=== PATIENT | male | born 1970 | race African-American/Black ===

== ENCOUNTER 2018-06-18 09:16 | Emergency (ER) | payer MEDICAID, OTHER ==
[2018-06-18] MEDS ORDERED: CYCLOBENZAPRINE 10 MG TAB PO ONE (09:28)
[2018-06-18] MEDS ORDERED: LIDOCAINE 4%/MENTHOL 1% PATCH TD ONE (09:28)
--- NOTE | 2018-06-18 09:28 | EDPHY ---
H & P Stated Complaint: r neck pain x 2 weeks Source: Patient Exam Limitations: No limitations - Personal History Current Tetanus/Diphtheria Vaccine: Yes - Medical/Surgical History Hx Asthma: No Hx Chronic Respiratory Disease: No Hx Diabetes: No Hx Cardiac Disease: No Hx Renal Disease: No Hx Cirrhosis: No Hx Alcoholism: No Hx HIV/AIDS: No Hx Splenectomy or Spleen Trauma: No Other PMH: denies - Social History Smoking Status: Never smoked Time Seen by Provider: 06/18/18 09:25 HPI/ROS: HPI: This is a 47-year-old male who presents with Chief Complaint: Right-sided neck pain x2 weeks Location: Right-sided neck Quality: Pain and decreased range of motion Duration: 2 weeks Signs and Symptoms: No bleeding, + radiation, no numbness, no weakness, no tingling, no incontinence, + decreased range of motion, no swelling, + pain, no fever Timing: Worsening Severity: Moderate Context: Patient is right-hand dominant, presents with 2 week history of gradually worsening pain on the right side of his neck that is increased with right lateral flexion and extension. Patient denies any trauma or injury. He reports that he has radiculopathy found the back of his neck down into all 5 fingers. He reports that the pain is constant, moderate in intensity. He has tried [id number] pain medications and massage with no relief. No recent chiropractic manipulation. Patient also reports that the pain at the base of his neck is causing headaches that occur daily. Headaches are not the worst of his life and are not thunderclap. Modifying Factors: [id number] pain medication Comment: ROS: A comprehensive 10 system review of systems is otherwise negative aside from elements mentioned in the history of present illness. MEDICAL/SURGICAL/SOCIAL HISTORY: Medical history: Generally healthy. Does not take any regular medications. Surgical history: Denies Social history: Never smoked, employed CONSTITUTIONAL: Muscular, adult black male, awake and alert, no obvious distress HEENT: Atraumatic and normocephalic. NECK: supple, no midline tenderness, reproducible tenderness over the right cervical paraspinous muscles with associated spasm; good range of motion but elicits pain. flexion 45 degrees, extension 45 degrees, right and left lateral flexion 45 degrees. No meningismus. Cardiovascular: Normal S1/S2, regular rate, regular rhythm, without murmur rub or gallop. PULMONARY/CHEST: Symmetrical and nontender. Clear to auscultation bilaterally. Good air movement. No accessory muscle usage. ABDOMEN: Soft, nondistended, nontender EXTREMITIES: 2/2 pulses, strength 5/5, no deformities, no clubbing, no cyanosis or edema. NEUROLOGICAL: no focal neuro deficits. GCS 15. Light touch sensation intact. SKIN: Warm and dry, no erythema. Tattoos present. no rash. Good capillary refill. (Neelam Cano) Constitutional: Initial Vital Signs Temperature (C) 37 C 06/18/18 09:18 Heart Rate 78 06/18/18 09:18 Respiratory Rate 18 06/18/18 09:18 Blood Pressure 159/97 H 06/18/18 09:18 O2 Sat (%) 96 06/18/18 09:18 O2 Delivery Mode Room Air Allergies/Adverse Reactions: No Known Allergies Allergy (Unverified 06/18/18 09:18) Home Medications: Medication Instructions Recorded Cyclobenzaprine [Flexeril 10 MG 10 mg PO TID PRN #15 tab 06/18/18 (*)] methylPREDNISolone [Medrol Dose 1 each PO AD #0 ea 06/18/18 Clark] oxyCODONE/APAP 5/325 [Percocet 1 - 2 tab PO Q4H PRN #10 tab 06/18/18 5/325 (*)] Medical Decision Making - Diagnostics Imaging Results: Imaging Impressions Cervical Spine MRI 06/18/18 09:28 Impression: 1. Multilevel mild to moderate degenerative disk disease with dorsal disk/ osteophyte complexes, worst at C3-C4, C4-C5, and C6-C7, bilateral uncovertebral osteophytes, and mild to moderate bilateral facet arthropathy resulting in mild central canal stenosis with slight cord compression at C3-C4, C4-C5, C5-C6, and C6-C7, worst at C3-C4 and C6-C7, and variable bilateral neural foraminal stenosis, severe on the right at C3-C4, moderate to severe bilaterally at C5-C6 , as described above. 2. C3-C4: Severe right neural foraminal stenosis secondary to moderate degenerative disk disease with dorsal disk/osteophyte complex, right uncovertebral osteophytes and bilateral facet arthropathy likely results in the patient's right upper extremity symptomatology. 3. No cord edema or myelomalacia. 4. Please see above findings at specific disk levels. Findings and recommendations discussed with Emergency Department physician web assistant, Neelam Cano, at 1052 hours, 06/18/2018. Final report concurs with initial preliminary interpretation. ED Course/Re-evaluation: Vital signs reviewed and stable upon arrival. MRI cervical spine ordered along with Lidoderm patch and p.o. Flexeril 10 mg. 1040: Called by radiologist, Dr. Castaneda, who advises that C3-C4 has severe neural foraminal degenerative changes as well as mild cord compression but no cord edema. He has scattered osteophyte complexes C3-C7 and moderate degenerative changes throughout 1050: Reassessed patient who reports adequate relief of pain. Will placed on Medrol Dosepak, Flexeril, Percocet with Neurosurgery follow-up No signs of neurovascular compromise/tenting of skin/compartment syndrome/ extremities and joints examined above and below area of concern and are neurovascularly intact/diskitis/epidural hematoma. This patient was seen under the supervision of my secondary supervising physician. I evaluated care for this patient independently. Discussed this patient with Dr. Briceno. (Neelam Cano) Differential Diagnosis: Differential diagnosis includes but is not limited to cervical degenerative disc disease, cervical disc herniation, cervical radiculopathy, cervical strain. (Neelam Cano) - Data Points Medications Given: Discontinued Medications Cyclobenzaprine HCl (Flexeril) 10 mg PO EDNOW ONE Stop: 06/18/18 09:29 Last Admin: 06/18/18 10:25 Dose: 10 mg Miscellaneous Medication (Icy Hot Lidocaine/Menthol 4%/1% Patch) 1 patch TD EDNOW ONE Stop: 06/18/18 09:29 Last Admin: 06/18/18 10:26 Dose: 1 patch Departure - Departure Disposition: Home, Routine, Self-Care Clinical Impression: Neural foraminal stenosis of cervical spine, Disc disease, degenerative, cervical, Degeneration of intervertebral disc of cervical region with osteophyte of cervical vertebra Condition: Good Instructions: Cervical Radiculopathy (ED), Degenerative Disc Disease (ED) Additional Instructions: Take Tylenol 650 mg every 4 hours and/or Ibuprofen 600 mg every 8 hours with food as needed for pain. Use Percocet every 6 hours as needed for severe/break through pain. Do not use Tylenol and Percocet concomitantly. Use Flexeril every 8 hr as needed for muscle spasms. Take Medrol Dosepak as directed until complete. Follow up with Neurosurgery in 7-10 days at which time they will evaluate and recommend with you if conservative management versus epidural steroid injection is indicated. Referrals: Wilton Escobedo MD [Medical Doctor] - As per Instructions Prescriptions: Cyclobenzaprine [Flexeril 10 MG (*)] 10 mg PO TID PRN #15 tab PRN Reason: Spasms methylPREDNISolone [Medrol Dose Clark] 1 each PO AD #0 ea oxyCODONE/APAP 5/325 [Percocet 5/325 (*)] 1 - 2 tab PO Q4H PRN #10 tab PRN Reason: Pain, Severe
[2018-06-18 10:52] VITALS: BP 152/95
[2018-06-18] MEDS ORDERED: PATCH REMOVAL 1 EA PATCH TD SCH (21:00)
== END 2018-06-18 10:51 | disposition home or self-care (01) ==
DX: M48.02 Spinal stenosis, cervical region (principal); M53.82 Other specified dorsopathies, cervical region

== ENCOUNTER 2018-06-25 09:58 | Emergency (ER) | payer OTHER ==
--- NOTE | 2018-06-25 10:17 | EDPHY ---
H & P Stated Complaint: bleeding on scalp post shaving head Time Seen by Provider: 06/25/18 10:13 HPI/ROS: HPI: This is a 47-year-old male who presents with Chief Complaint: bleeding on scalp post shaving head Location: Right temporal scalp Quality: Bleeding Duration: 15 min prior to arrival Signs and Symptoms: + bleeding, no radiation, no numbness, no weakness, no tingling, no incontinence, no decreased range of motion, no swelling, no pain, no fever Timing: Acute, resolved Severity: Mild Context: Patient reports that he was using a straight razor to shave his scalp this morning when he accidentally cut his right temporal scalp. Reports that he immediately started to bleed and the blood ran into his eyes. He rinsed it with hot water, apply direct pressure and then port hydrogen peroxide on the area. He reports that after a few minutes the bleeding stopped on its own. Denies dizziness, nausea, loss of consciousness. Reports tetanus is current. Modifying Factors: See above Comment: ROS: A comprehensive 10 system review of systems is otherwise negative aside from elements mentioned in the history of present illness. MEDICAL/SURGICAL/SOCIAL HISTORY: Medical history: Generally healthy. Does not take any regular medications. Surgical history: Denies Social history: Employed. Never smoked. CONSTITUTIONAL: Polite and cooperative, physically fit middle-aged black male, awake and alert, no obvious distress HEENT: normocephalic. 1/8 cm superficial nonbleeding skin avulsion on the right temporal scalp. NECK: supple EXTREMITIES: 2/2 pulses, strength 5/5, good light touch sensation. no deformities, no clubbing, no cyanosis or edema. NEUROLOGICAL: no focal neuro deficits. GCS 15. Light touch sensation intact. SKIN: Warm and dry, no erythema. no rash. Good capillary refill. Source: Patient Exam Limitations: No limitations - Personal History Current Tetanus Diphtheria and Acellular Pertussis (TDAP): Yes - Medical/Surgical History Hx Asthma: No Hx Chronic Respiratory Disease: No Hx Diabetes: No Hx Cardiac Disease: No Hx Renal Disease: No Hx Cirrhosis: No Hx Alcoholism: No Hx HIV/AIDS: No Hx Splenectomy or Spleen Trauma: No Other PMH: denies - Social History Smoking Status: Never smoked Constitutional: Initial Vital Signs Temperature (C) 37.1 C 06/25/18 10:01 Heart Rate 90 06/25/18 10:01 Respiratory Rate 18 06/25/18 10:01 O2 Sat (%) 95 06/25/18 10:01 O2 Delivery Mode Room Air Allergies/Adverse Reactions: No Known Allergies Allergy (Verified 06/25/18 09:59) Home Medications: Medication Instructions Recorded NK [No Known Home Meds] 06/25/18 Medical Decision Making ED Course/Re-evaluation: Vital signs reviewed and stable upon arrival. Patient has no active bleeding. No further intervention is required. Tetanus is current. Given verbal and written wound care instructions. This patient was seen under the supervision of my secondary supervising physician. I evaluated care for this patient independently. Discussed this patient with Dr. Vera. Differential Diagnosis: Differential diagnosis includes but is not limited to skin avulsion, laceration , vascular injury. Departure - Departure Disposition: Home, Routine, Self-Care Clinical Impression: Skin avulsion Condition: Good Instructions: Skin Avulsion (ED) Additional Instructions: Keep the area dry for 24-48 hours. After 48 hours, you may wash the site daily with mild soap and water; then pat dry. Apply topical antibiotic ointment daily until fully healed. Take Tylenol 650 mg every 4 hours and/or Ibuprofen 600 mg every 8 hours with food as needed for pain. Return to the ER immediately if you experience redness, red streaks, have fevers /chills, flu like symptoms, limited range of motion, or any other symptoms that concern you. Referrals: [facility],. [Clinic] - As per Instructions
== END 2018-06-25 10:23 | disposition home or self-care (01) ==
DX: S08.0XXA Avulsion of scalp, initial encounter (principal); W26.8XXA Contact with other sharp object(s), not elsewhere classified, initial encounter; Y93.E8 Activity, other personal hygiene

== ENCOUNTER 2018-08-11 14:09 | Emergency (ER) | payer OTHER ==
[2018-08-11 14:15] VITALS: BP 137/88
[2018-08-11] MEDS ORDERED: KETOROLAC 30 MG/1 ML SDV IM ONE (14:40)
--- NOTE | 2018-08-11 14:41 | EDPHY ---
H & P Time Seen by Provider: 08/11/18 14:17 HPI/ROS: HPI Chronic right-sided neck pain. Seen here in the past for the same. 47-year-old male by private vehicle. This patient presents to the emergency department complaining of ongoing right-sided posterior lateral neck pain. He was seen on June 18 of this year by physician environmental engineering assistant Rachael under the supervision of Dr. Manolo Briceno. He had an MRI of his cervical spine at that time. Osteophytic changes, degenerative changes and spinal canal stenosis was noted. Please see report for further details. He was discharged on a Medrol Dosepak as well as pain medications and muscle relaxers. He was instructed to follow up with Dr. Rush Gonzalez of the neuro spine service for re-evaluation and further management. He never did this. He did not have any significant neurologic findings at that visit. He comes back to the emergency department today stating that he has ongoing right posterior lateral neck pain, identical to the pain which has been plaguing him for some time now. He is asking for pain medication. He states that he was taking Flexeril but was not having significant relief from this medication. He states that he did not follow up with neuro spine secondary to being too busy working 2 jobs. He denies any neurologic complaints. He states that his pain is worse with yawning, sneezing , flexion extension and rotation of his neck. ROS: Constitutional: No fever, no chills. No weakness. Eyes: No discharge. No changes in vision. ENT: No sore throat. No nasal congestion or rhinorrhea. Respiratory: No cough. No shortness of breath. Cardiac: No chest pain, no palpitations. Gastrointestinal: No abdominal pain, no vomiting, no diarrhea. Genitourinary: No hematuria. No dysuria or increased frequency with urination. Musculoskeletal: No back pain. As above. No myalgias or arthralgias. Skin: No rashes. Neurological: No headache. No focal weakness or altered sensation. Past medical history: As above. Social history: He is here by himself. Nonsmoker. No alcohol. Physical Exam: General Appearance: Alert, no distress. Large man. This patient is responding to questions appropriately and in full sentences. This patient appears well-hydrated and well-nourished. Eyes: Pupils equal and round no pallor or injection. No lid edema, erythema or injection. Neurological: Motor sensory function is grossly intact in all myotomes in dermatomes of the bilateral upper and bilateral lower extremities. Cranial nerves are normal. Gait is normal. Skin: Warm and dry, no rashes. Respiratory: Lungs are clear on auscultation bilaterally. Good air movement. No tachypnea. Musculoskeletal: Neck is supple. No midline cervical, upper thoracic tenderness on palpation. He has tenderness on palpation at the medial base of his right trapezius muscle. There is some spasming to this area. Otherwise the soft tissues of his neck are nontender on palpation and without masses. He has no suboccipital tenderness on palpation. No voice changes. No stridor on auscultation of his neck. Extremities are symmetrical. All joints range without pain or impingement. Psychiatric: No agitation. No depression. Database: EKG: Imaging: Procedures: Emergency department course: Triage vital signs reviewed and are unremarkable. The patient has no contraindications to NSAIDs. No history of peptic ulcer disease or renal problems. He will be given a 1 time intramuscular dose of Toradol. I explained that I would write him limited prescriptions for oral morphine as well as Flexeril. He had good relief with his pain from the intramuscular Toradol. He presents without neurologic symptoms. I do not feel that steroids are indicated at this time. He tells me also that he just finished a course of oral prednisone. I discussed the importance of follow-up with the neuro spine service. I also discussed follow-up with [facility] for discussion of nonsurgical options regarding his neck pain. I stressed the importance of this follow-up and he stated that he would follow up shortly after the holidays. He feels comfortable going home and I feel he is safe for discharge. Return to emergency department precautions were reviewed thoroughly with him. All of his questions were answered. He was discharged from the emergency department in good condition. Differential Diagnosis: The differential diagnosis on this patient includes but is not limited to chronic neck pain, history of cervical degenerative changes. Acute cervical radiculopathy, epidural compression syndrome, carotid artery dissection, vertebral artery dissection, meningitis, acute traumatic spinal injury unlikely. This represents a partial list of diagnoses considered. These considerations are based on history, physical exam, past history, reassessment and diagnostic testing. Smoking Status: Never smoked Constitutional: Initial Vital Signs Temperature (C) 36.4 C 08/11/18 14:13 Heart Rate 78 08/11/18 14:13 Respiratory Rate 16 08/11/18 14:13 Blood Pressure 137/88 H 08/11/18 14:13 O2 Sat (%) 97 08/11/18 14:13 O2 Delivery Mode Room Air Allergies/Adverse Reactions: No Known Allergies Allergy (Verified 06/25/18 09:59) Home Medications: Medication Instructions Recorded Cyclobenzaprine [Flexeril 10 MG 10 mg PO TID #9 tab 08/11/18 (*)] Flexeril 10 MG (*) 08/11/18 Prednisone 08/11/18 morphINE IR [morphINE IR 15 mg (*)] 15 mg PO Q4-6PRN PRN #10 tab 08/11/18 Medical Decision Making - Data Points Medications Given: Discontinued Medications Ketorolac Tromethamine (Toradol) 60 mg IM EDNOW ONE Stop: 08/11/18 14:41 Last Admin: 08/11/18 14:46 Dose: 60 mg Departure - Departure Disposition: Home, Routine, Self-Care Clinical Impression: Chronic neck pain Condition: Good Instructions: Neck Pain (ED) Additional Instructions: Read and follow provided instructions. Follow-up with Dr. Wilton Escobedo or 1 of his partners with the neuro spine service as discussed. Call their office on Monday morning for appointment time. He should be seen within the next week. I have also given you referral information to [facility], these are doctors that take care of neck and back pain with nonsurgical options. Take medication as prescribed for pain and muscle relaxation. Uses medications at night. Do not drive while on these medications. Return to the emergency department for worsening pain, any loss of sensation, weakness or pain in your arms or other serious concerns. Referrals: [facility] [Outside] - As per Instructions Wilton Escobedo MD [Medical Doctor] - As per Instructions Prescriptions: Cyclobenzaprine [Flexeril 10 MG (*)] 10 mg PO TID #9 tab morphINE IR [morphINE IR 15 mg (*)] 15 mg PO Q4-6PRN PRN #10 tab PRN Reason: Pain, Moderate
== END 2018-08-11 14:52 | disposition home or self-care (01) ==
DX: M54.2 Cervicalgia (principal); G89.29 Other chronic pain
CPT/HCPCS: J1885

== ENCOUNTER 2018-08-15 18:19 | Emergency (ER) | payer OTHER ==
--- NOTE | 2018-08-15 18:36 | EDPHY ---
H & P Stated Complaint: c/o itching rash on neck x 1-2 hrs, no known allergies, no other sx Time Seen by Provider: 08/15/18 18:35 HPI/ROS: CHIEF COMPLAINT: Rash on neck HISTORY OF PRESENT ILLNESS: The patient presents the ED with complaints of a rash on his neck which has been present for the past 1-2 hours. The patient was seen in the emergency department several days ago with neck pain any similar distribution. The patient has no prior history of zoster. He denies any acute neurologic complaints. Patient was given a prescription for Flexeril and morphine during his prior ED visit. REVIEW OF SYSTEMS: A comprehensive 10 point review of systems is otherwise negative aside from elements mentioned in the history of present illness. Source: Patient - Medical/Surgical History Hx Asthma: No Hx Chronic Respiratory Disease: No Hx Diabetes: No Hx Cardiac Disease: No Hx Renal Disease: No Hx Cirrhosis: No Hx Alcoholism: No Hx HIV/AIDS: No Hx Splenectomy or Spleen Trauma: No Other PMH: L biceps tendon repair - Social History Smoking Status: Never smoked - Physical Exam Exam: General Appearance: Alert, no distress Eyes: Pupils equal and round no pallor or injection ENT, Mouth: Mucous membranes moist Respiratory: There are no retractions, lungs are clear to auscultation Cardiovascular: Regular rate and rhythm Gastrointestinal: Abdomen is soft and nontender, no masses, bowel sounds normal Neurological: A&O, normal motor function, normal sensory exam, normal cranial nerves Skin: Rash noted on the right side of the neck in a dermatomal distribution consistent with zoster Musculoskeletal: Neck is supple nontender, no meningeal symptoms Extremities: symmetrical, full range of motion Psychiatric: Patient is oriented X 3, there is no agitation Constitutional: Initial Vital Signs Temperature (C) 36.8 C 08/15/18 18:27 Heart Rate 80 08/15/18 18:27 Respiratory Rate 16 08/15/18 18:27 Blood Pressure 146/94 H 08/15/18 18:27 O2 Sat (%) 95 08/15/18 18:27 O2 Delivery Mode Room Air Allergies/Adverse Reactions: No Known Allergies Allergy (Verified 08/15/18 18:29) Home Medications: Medication Instructions Recorded Cyclobenzaprine [Flexeril 10 MG 10 mg PO TID #9 tab 08/11/18 (*)] Flexeril 10 MG (*) 08/11/18 Prednisone 08/11/18 morphINE IR [morphINE IR 15 mg (*)] 15 mg PO Q4-6PRN PRN #10 tab 08/11/18 Valacyclovir HCl [Valtrex] 1,000 mg PO TID #21 tab 08/15/18 predniSONE 60 mg PO DAILY #21 tab 08/15/18 Medical Decision Making ED Course/Re-evaluation: Patient presents to the ED after he is developed a vesicular rash on the right side of his neck an area he experienced pain in several days ago. Patient will be treated with steroids and Valtrex. Departure - Departure Disposition: Home, Routine, Self-Care Clinical Impression: Zoster Qualifiers: Herpes zoster complications: without complications Qualified Code(s): B02.9 - Zoster without complications Condition: Good Instructions: Shingles (ED) Additional Instructions: 1. Please take antiviral medication and steroids as directed for next 7 days. 2. Return to the ED for markedly worsening symptoms or other concerns. 3. Follow-up with your primary care provider as needed. Prescriptions: predniSONE 60 mg PO DAILY #21 tab Valacyclovir HCl [Valtrex] 1,000 mg PO TID #21 tab
[2018-08-15 19:04] VITALS: BP 145/85
== END 2018-08-15 19:04 | disposition home or self-care (01) ==
DX: B02.9 Zoster without complications (principal)